=== PATIENT | male | born 1950 | race Caucasian/White ===

== ENCOUNTER 2019-08-11 18:00 | Emergency (ER) | payer OTHER ==
[~2019-08-11] VITALS: Ht 167.6 cm; Wt 97.5 kg
[~2019-08-11 18:00] MED LIST: CARVEDILOL12.5 MG; Coreg PO; Cozaar PO; FLAGYL500MG PO; FOSAMAX70 MG; FUROSEMIDE20 MG; FUROSEMIDE20 MG PO; GEMFIBROZIL600 MG; GLIPIZIDE5 MG; INTESTINEX680 MG PO; LOSARTAN POTASS50 MG; Lopid PO; MONTELUKAST SOD10 MG; NABUMETONE750 MG; SIMVASTATIN20 MG; SPIRONOLACTONE25 MG; SPIRONOLACTONE25 MG PO; ZoCOR 20MG TABLET PO
[2019-08-11] MEDS ORDERED: NABUMETONE750 MG (18:59)
[2019-08-11] MEDS ORDERED: GEMFIBROZIL600 MG (18:59)
[2019-08-11] MEDS ORDERED: LASIX20 MG (18:59)
[2019-08-11] MEDS ORDERED: CARVEDILOL12.5 MG (19:00)
[2019-08-11] MEDS ORDERED: ZOCOR20 MG (19:00)
[2019-08-11] MEDS ORDERED: ALDACTONE25 MG (19:01)
[2019-08-11] MEDS ORDERED: SINGULAIR10 MG (19:01)
[2019-08-11] MEDS ORDERED: GLUCOTROL XL5 MG (19:01)
[2019-08-11] MEDS ORDERED: COZAAR25 MG (19:02)
== END 2019-08-11 21:31 | disposition home or self-care (01) ==
LOC: ER 18:00
DX: M10.072 Idiopathic gout, left ankle and foot (principal)

== ENCOUNTER 2019-09-05 09:47 | Outpatient (CLI) | payer OTHER ==
[~2019-09-05 09:47] MED LIST changes: +ALDACTONE25 MG; +COZAAR25 MG; +GLUCOTROL XL5 MG; +LASIX20 MG; +SINGULAIR10 MG; +ZOCOR20 MG
== END 2019-09-05 10:02 | disposition home or self-care (01) ==
LOC: NUCLEAR 09:47
PROVIDERS: ATTEND Internal Medicine
DX: I87.2 Venous insufficiency (chronic) (peripheral) (principal)

== ENCOUNTER 2019-09-07 10:39 | Outpatient (CLI) | payer OTHER | END 2019-09-07 10:44 | disposition home or self-care (01) | LOC: TOM 10:39 | PROVIDERS: ATTEND Internal Medicine | DX: K40.90 Unilateral inguinal hernia, without obstruction or gangrene, not specified as recurrent (principal) ==

== ENCOUNTER → 2019-09-20 | Outpatient (CLI) | payer OTHER | END | disposition home or self-care (01) | LOC: RAD 13:03 | PROVIDERS: ATTEND Internal Medicine | DX: M54.5 Low back pain (principal); M15.0 Primary generalized (osteo)arthritis ==

== ENCOUNTER → 2019-09-27 | Outpatient (CLI) | payer OTHER | END | disposition home or self-care (01) | LOC: MRI 11:36 | PROVIDERS: ATTEND Internal Medicine | DX: M54.5 Low back pain (principal); M77.32 Calcaneal spur, left foot; M24.075 Loose body in left toe joint(s); M40.56 Lordosis, unspecified, lumbar region | CPT/HCPCS: 72148 ==

== ENCOUNTER → 2019-10-12 | Outpatient (CLI) | payer OTHER | END | disposition home or self-care (01) | LOC: MAMO-SONO 13:45 → SONOGRAMA 14:03 | PROVIDERS: ATTEND Physical Medicine & Rehabilitation Hospice and Palliative Medicine | DX: M76.62 Achilles tendinitis, left leg (principal) ==

== ENCOUNTER 2019-11-27 15:07 | Inpatient (IN) | payer OTHER ==
[~2019-11-27] VITALS: Ht 167.6 cm; Wt 95.3 kg
[2019-12-07] MEDS ORDERED: RELAFEN PO (09:36)
[2019-12-07] MEDS ORDERED: GLUCOTROL XL5 MG PO (09:36)
[2019-12-07] MEDS ORDERED: LOPID PO (09:37)
[2019-12-07] MEDS ORDERED: ALDACTONE25 MG PO (09:37)
[2019-12-14] MEDS ORDERED: TAMSULOSIN HCL0.4 MG PO (11:43)
[2019-12-14] MEDS ORDERED: DICLOFENAC SOD100 GM (11:43)
[2019-12-26] MEDS ORDERED: TAMS0.4C PO (10:19)
[2019-12-26] MEDS ORDERED: ELIQUIS5 MG PO (10:19)
== END 2019-12-26 12:03 | disposition home or self-care (01) | DRG 350 ==
LOC: SURH 12-14 07:00 → O/R 12-14 07:22 → SURG 12-14 07:22
PROVIDERS: ADMIT Surgery; ATTEND Surgery
PROC: 0YJ64ZZ Inspection of Left Inguinal Region, Percutaneous Endoscopic Approach (ICD-10-PCS; 2019-12-14)
PROC: 0WUF4JZ Supplement Abdominal Wall with Synthetic Substitute, Percutaneous Endoscopic Approach (ICD-10-PCS; 2019-12-14)
PROC: 0YU60JZ Supplement Left Inguinal Region with Synthetic Substitute, Open Approach (ICD-10-PCS; principal; 2019-12-14 07:00)
PROC: 4A033R1 Measurement of Arterial Saturation, Peripheral, Percutaneous Approach (ICD-10-PCS; 2019-12-16)
PROC: 3E0F7GC Introduction of Other Therapeutic Substance into Respiratory Tract, Via Natural or Artificial Opening (ICD-10-PCS; 2019-12-16)
PROC: BB24ZZZ Computerized Tomography (CT Scan) of Bilateral Lungs (ICD-10-PCS; 2019-12-16)
PROC: BW2GZZZ Computerized Tomography (CT Scan) of Pelvic Region (ICD-10-PCS; 2019-12-17)
PROC: B246ZZZ Ultrasonography of Right and Left Heart (ICD-10-PCS; 2019-12-18)
PROC: CB221ZZ Tomographic (Tomo) Nuclear Medicine Imaging of Lungs and Bronchi using Technetium 99m (Tc-99m) (ICD-10-PCS; 2019-12-18)
PROC: B54DZZZ Ultrasonography of Bilateral Lower Extremity Veins (ICD-10-PCS; 2019-12-22)
DX: K40.90 Unilateral inguinal hernia, without obstruction or gangrene, not specified as recurrent (principal); I26.99 Other pulmonary embolism without acute cor pulmonale; K42.0 Umbilical hernia with obstruction, without gangrene; M96.89 Other intraoperative and postprocedural complications and disorders of the musculoskeletal system; J95.89 Other postprocedural complications and disorders of respiratory system, not elsewhere classified; J98.11 Atelectasis; K91.841 Postprocedural hemorrhage of a digestive system organ or structure following other procedure; T81.72XA Complication of vein following a procedure, not elsewhere classified, initial encounter; A04.72 Enterocolitis due to Clostridium difficile, not specified as recurrent; Z20.828 Contact with and (suspected) exposure to other viral communicable diseases; I97.3 Postprocedural hypertension; R09.02 Hypoxemia; J98.01 Acute bronchospasm; N40.1 Benign prostatic hyperplasia with lower urinary tract symptoms; R60.0 Localized edema

== ENCOUNTER 2020-01-29 08:28 | Outpatient (CLI) | payer OTHER ==
[~2020-01-29 08:28] MED LIST changes: +ALDACTONE25 MG PO; +DICLOFENAC SOD100 GM; +ELIQUIS5 MG PO; +GLUCOTROL XL5 MG PO; +LOPID PO; +RELAFEN PO; +TAMS0.4C PO; +TAMSULOSIN HCL0.4 MG PO
== END 2020-01-29 08:37 | disposition home or self-care (01) ==
LOC: NUCLEAR 08:28
PROVIDERS: ATTEND Internal Medicine
DX: K31.84 Gastroparesis (principal); K21.9 Gastro-esophageal reflux disease without esophagitis
CPT/HCPCS: 78264; A9541

== ENCOUNTER 2020-01-31 11:18 | Outpatient (CLI) | payer OTHER | END 2020-01-31 11:54 | disposition home or self-care (01) | LOC: SONOGRAMA 11:18 | PROVIDERS: ATTEND Surgery | DX: I86.1 Scrotal varices (principal); N50.89 Other specified disorders of the male genital organs; N40.1 Benign prostatic hyperplasia with lower urinary tract symptoms; N50.812 Left testicular pain ==

== ENCOUNTER → 2020-02-14 | Outpatient (CLI) | payer OTHER | END | disposition home or self-care (01) | LOC: SONOGRAMA 07:30 → MAMO-SONO 02-26 07:15 | PROVIDERS: ATTEND Internal Medicine Gastroenterology | DX: Q61.02 Congenital multiple renal cysts (principal); R10.13 Epigastric pain ==

== ENCOUNTER → 2020-04-17 | Outpatient (CLI) | payer OTHER | END | disposition home or self-care (01) | LOC: MAMO-SONO 07:45 → SONOGRAMA 09:22 | PROVIDERS: ATTEND Specialist/Technologist, Other Nephrology | DX: Q61.02 Congenital multiple renal cysts (principal); R10.84 Generalized abdominal pain; N18.30 Chronic kidney disease, stage 3 unspecified; R31.29 Other microscopic hematuria ==

== ENCOUNTER 2020-12-04 13:12 | Outpatient (CLI) | payer OTHER | END 2020-12-04 13:25 | disposition home or self-care (01) | LOC: SONOGRAMA 13:12 → MAMO-SONO 13:15 → SONOGRAMA 13:25 | PROVIDERS: ATTEND Surgery | DX: N40.1 Benign prostatic hyperplasia with lower urinary tract symptoms (principal) ==

== ENCOUNTER 2021-05-13 10:01 | Outpatient (CLI) | payer OTHER | END 2021-05-13 10:06 | disposition home or self-care (01) | LOC: RAD 10:01 | PROVIDERS: ATTEND Internal Medicine | DX: I10 Essential (primary) hypertension (principal) ==

== ENCOUNTER 2022-04-16 14:31 | Outpatient (CLI) | payer OTHER | END 2022-04-16 14:44 | disposition home or self-care (01) | LOC: MRI 14:31 | DX: S83.211A Bucket-handle tear of medial meniscus, current injury, right knee, initial encounter (principal); R10.9 Unspecified abdominal pain; N18.30 Chronic kidney disease, stage 3 unspecified; R31.9 Hematuria, unspecified | CPT/HCPCS: 73718 ==